=== PATIENT | male | born 1955 | race Caucasian/White ===

== ENCOUNTER 2019-06-07 06:34 | Inpatient (IN) | payer OTHER ==
[~2019-06-07] VITALS: Ht 190.5 cm; Wt 141.1 kg
[~2019-06-07 06:34] MED LIST: ASPI-515 PO; FAMO-79 PO; MELO7.5T5 PO; METO25TA35 PO
--- NOTE | 2019-06-07 06:50 | NUR ---
FLAVORER: PT TO ROOM FROM [facility]
[2019-06-07] MEDS ORDERED: FENTANYL PF 100 MCG/2ML IV ONE ×2 (07:00→11:00)
[2019-06-07] MEDS ORDERED: ONDANSETRON 2MG/ML, 2ML IVPush ONE (07:00)
[2019-06-07] MEDS ORDERED: SODIUM CHLORIDE FLUSH 10ML SYR IVF ONE (07:00)
[2019-06-07] MEDS ORDERED: ONDANSETRON 2MG/ML, 2ML ONE (07:10)
[2019-06-07] MEDS ORDERED: FENTANYL PF 100 MCG/2ML ONE ×2 (07:10→11:06)
[2019-06-07 07:25] LABS: BASOPHILS # (AUTO) 0.09 x10^3/uL (0-0.1); BASOPHILS % (AUTO) 1 % (0-1); EOSINOPHILS # (AUTO) 0.12 x10^3/uL (0-0.4); EOSINOPHILS % (AUTO) 1 % (1-7); LYMPHOCYTES # (AUTO) 0.87 x10^3/uL (1-3.4); LYMPHOCYTES % (AUTO) 9 % (22-44); MD NO; MEAN CORPUSCULAR HEMOGLOBIN 30.3 pg (27.5-34.5); MEAN CORPUSCULAR HGB CONC 32.6 g/dL (33.2-36.2); MEAN CORPUSCULAR VOLUME 93.1 fL (81-97); MEAN PLATELET VOLUME 7.7 fL (7.4-10.4); MONOCYTES # (AUTO) 0.51 x10^3/uL (0.2-0.8); MONOCYTES % (AUTO) 5 % (2-9); NEUTROPHILS # (AUTO) 8.43 x10^3/uL (1.8-6.8); NEUTROPHILS % (AUTO) 84 % (42-75); PLATELET COUNT 261 x10^3/uL (130-400); RED CELL DISTRIBUTION WIDTH 14.3 % (9.4-14.8)
[2019-06-07 07:34] LABS: ALANINE AMINOTRANSFERASE 29 U/L (12-78); ANION GAP 6 mmol/L (5-15); CALCIUM 9.5 mg/dL (8.5-10.1); CHLORIDE 106 mmol/L (98-107); CREATININE 0.95 mg/dL (0.7-1.3)
[2019-06-07 07:36] LABS: ALKALINE PHOSPHATASE 79 U/L (45-117); BILIRUBIN,TOTAL 0.7 mg/dL (0.2-1.0); TOTAL PROTEIN 7.8 g/dL (6.4-8.2)
--- NOTE | 2019-06-07 08:02 | NUR ---
pt upright on gurney awake & more comfortable, responds approp to staff, NAD, comfort measures provided, at BS, call light within reach.
--- NOTE | 2019-06-07 08:53 | NUR ---
pt remains upright on gurney awake & comfortable, responds approp to staff, NAD, comfort measures provided, at BS, call light within reach.
--- NOTE | 2019-06-07 09:56 | NUR ---
pt upright on gurney awake & more comfortable, responds approp to staff, NAD, comfort measures provided, at BS, call light within reach.
[2019-06-07] MEDS ORDERED: SODIUM CHLORIDE 0.9% 1,000 ML IV ONE (10:42)
--- NOTE | 2019-06-07 11:11 | NUR ---
pt remains upright on gurney awake & comfortable, responds approp to staff, NAD, comfort measures provided, at BS, call light within reach.
[2019-06-07 11:33] VITALS: BP 161/90
[2019-06-07 12:59] VITALS: BP 148/86
[2019-06-07] MEDS ORDERED: POLYETHYLENE GLYCOL 17 GM PACKET PO PRN (15:00)
[2019-06-07] MEDS ORDERED: LABETALOL 5MG/ML, 20ML IVPush PRN (15:00)
[2019-06-07] MEDS ORDERED: ONDANSETRON ODT 4 MG PO PRN (15:00)
[2019-06-07] MEDS: ONDANSETRON 2MG/ML, 2ML IVPush PRN ×2 (15:17→21:21)
[2019-06-07] MEDS: MORPHINE SULFATE 4 MG/ML, 1ML IVPush PRN ×2 (15:17→21:51)
[2019-06-07] MEDS: D5%-0.45% NACL 1,000 ML IV SCH ×2 (15:18→23:50)
[2019-06-07 15:27] LABS: FREE T4 (FREE THYROXINE) 1.08 ng/dL (0.76-1.46)
[2019-06-07] MEDS ORDERED: SIMETHICONE 125 MG CHEW TAB PO PRN (16:00)
[2019-06-07 19:37] VITALS: BP 150/87
[2019-06-07] MEDS: PANTOPRAZOLE 40 MG IV IVPush SCH (19:48)
[2019-06-08 01:16] VITALS: BP 128/82
[2019-06-08 04:44] LABS: BASOPHILS # (AUTO) 0.02 x10^3/uL (0-0.1); BASOPHILS % (AUTO) 0 % (0-1); EOSINOPHILS # (AUTO) 0.28 x10^3/uL (0-0.4); EOSINOPHILS % (AUTO) 4 % (1-7); LYMPHOCYTES # (AUTO) 1.26 x10^3/uL (1-3.4); LYMPHOCYTES % (AUTO) 17 % (22-44); MD NO; MEAN CORPUSCULAR HEMOGLOBIN 31.3 pg (27.5-34.5); MEAN CORPUSCULAR HGB CONC 33.1 g/dL (33.2-36.2); MEAN CORPUSCULAR VOLUME 94.4 fL (81-97); MEAN PLATELET VOLUME 8.3 fL (7.4-10.4); MONOCYTES # (AUTO) 0.68 x10^3/uL (0.2-0.8); MONOCYTES % (AUTO) 9 % (2-9); NEUTROPHILS # (AUTO) 5.31 x10^3/uL (1.8-6.8); NEUTROPHILS % (AUTO) 70 % (42-75); PLATELET COUNT 229 x10^3/uL (130-400); RED BLOOD COUNT 4.79 x10^6/uL (4.38-5.82); RED CELL DISTRIBUTION WIDTH 14.1 % (9.4-14.8)
[2019-06-08 04:49] LABS: CALCIUM 7.9 mg/dL (8.5-10.1); CHLORIDE 109 mmol/L (98-107)
[2019-06-08 05:03] LABS: ALANINE AMINOTRANSFERASE 20 U/L (12-78); ALKALINE PHOSPHATASE 67 U/L (45-117); ANION GAP 5 mmol/L (5-15); BILIRUBIN,TOTAL 0.5 mg/dL (0.2-1.0); CREATININE 0.95 mg/dL (0.7-1.3); TOTAL PROTEIN 5.9 g/dL (6.4-8.2)
[2019-06-08 06:52] VITALS: BP 122/74
[2019-06-08] MEDS: PANTOPRAZOLE 40 MG IV IVPush SCH ×2 (09:00→20:41)
[2019-06-08] MEDS: SENNA/DOCUSATE TABLET PO SCH (09:00)
[2019-06-08] MEDS: D5%-0.45% NACL 1,000 ML IV SCH ×2 (09:00→16:46)
[2019-06-08] MEDS ORDERED: HYDROmorphone 1 MG/ML, 1ML INJ IV PRN (10:00)
[2019-06-08] MEDS ORDERED: HYDROmorphone 2 MG/ML, 1ML IVPush PRN (12:00)
[2019-06-08] MEDS: HYDROmorphone 2 MG/ML, 1ML IVPush PRN ×2 (12:14→16:46)
[2019-06-08 13:56] VITALS: BP 122/74
[2019-06-08 19:32] VITALS: BP 146/83
[2019-06-09] MEDS: D5%-0.45% NACL 1,000 ML IV SCH ×3 (00:08→18:17)
[2019-06-09] MEDS: HYDROmorphone 2 MG/ML, 1ML IVPush PRN ×2 (00:08→19:17)
[2019-06-09 00:12] VITALS: BP 164/71
[2019-06-09 07:00] VITALS: BP 152/88
[2019-06-09] MEDS: SENNA/DOCUSATE TABLET PO SCH (08:03)
[2019-06-09] MEDS: PANTOPRAZOLE 40 MG IV IVPush SCH ×2 (08:03→19:16)
[2019-06-09 12:47] VITALS: BP 156/80
[2019-06-09 19:43] VITALS: BP 162/83
[2019-06-10] MEDS: D5%-0.45% NACL 1,000 ML IV SCH ×2 (01:42→09:08)
[2019-06-10 06:52] VITALS: BP 144/80
[2019-06-10] MEDS: SENNA/DOCUSATE TABLET PO SCH (09:00)
[2019-06-10] MEDS: PANTOPRAZOLE 40 MG IV IVPush SCH (09:08)
[2019-06-10] MEDS ORDERED: SODIUM CHLORIDE 0.45% 1,000 ML IV SCH (10:00)
== END 2019-06-10 12:36 | disposition home or self-care (01) | DRG 390 ==
LOC: ED 07:35 → EDIP 10:34 → 3NE 11:26
PROVIDERS: ADMIT Internal Medicine; ATTEND Internal Medicine
DX: K56.609 Unspecified intestinal obstruction, unspecified as to partial versus complete obstruction (principal); M17.12 Unilateral primary osteoarthritis, left knee; E66.9 Obesity, unspecified; Z68.38 Body mass index [BMI] 38.0-38.9, adult; Z83.3 Family history of diabetes mellitus; Z82.49 Family history of ischemic heart disease and other diseases of the circulatory system; Z90.49 Acquired absence of other specified parts of digestive tract
CPT/HCPCS: 36415; 74018; 74021; 74177; 80053; 83605; 83690; 83735; 84100; 84439; 84443; 85025; 96374; 96375; G0378; J1170; J2405; J3010; C9113; J2270